=== PATIENT | male | born 1960 | race Caucasian/White ===

== ENCOUNTER → 2019-08-06 | Outpatient (CLI) | payer OTHER ==
--- NOTE | 2019-08-06 10:57 | XR ---
EXAMINATION TYPE: XR chest 2V DATE OF EXAM: 08/06/2019 COMPARISON: 10/07/2015 HISTORY: Shortness of breath and COPD. TECHNIQUE: Frontal and lateral views of the chest are obtained. FINDINGS: The masslike opacity at the right lung base seen on the prior has resolved in the interim. There is underlying bullous emphysematous change of the lung apices and COPD. Nodular left apical sc arring or 1.0 cm pulmonary nodule is demonstrated. Cardiomediastinal silhouette is stable. Pleural pa renchymal scarring in the right lung apex is seen. No new focal consolidation, pleural effusion or pn eumothorax. Multiple prominent probable vessels en face versus tiny pulmonary nodules in the left mid lung appears stable from 2016 and could be on the basis of granulomatous disease. IMPRESSION: 1. No acute cardiopulmonary process. Underlying COPD. 2. Left apical 1 cm nodular density could represent scarring or pulmonary nodule. Further evaluation with chest CT is recommended.
[2019-08-06 11:31] LABS: HCT 41.2 % (39.0-53.0); HGB 13.2 gm/dL (13.0-17.5); MCH 30.4 pg (25.0-35.0); MCHC 32.1 g/dL (31.0-37.0); MCV 94.8 fL (80.0-100.0); Mean Platelet Volume 6.9; Platelet Count 339 k/uL (150-450); RBC 4.35 m/uL (4.30-5.90); RDW 13.2 % (11.5-15.5); WBC 6.6 k/uL (3.8-10.6)
[2019-08-06 19:31] LABS: Hemoglobin A1C 5.8 % (4.0-6.0)
== END | disposition home or self-care (01) ==
LOC: LABWHC1 10:19
PROVIDERS: ATTEND Internal Medicine
DX: J44.9 Chronic obstructive pulmonary disease, unspecified (principal); M19.90 Unspecified osteoarthritis, unspecified site; R73.9 Hyperglycemia, unspecified; R91.1 Solitary pulmonary nodule
CPT/HCPCS: 36415; 71046; 83036; 84443; 85027

== ENCOUNTER → 2019-12-18 | Outpatient (CLI) | payer OTHER ==
--- NOTE | 2019-12-18 10:35 | CT ---
EXAMINATION TYPE: CT chest w con DATE OF EXAM: 12/18/2019 COMPARISON: 08/15/2013 HISTORY: Pulmonary nodule. CT DLP: 238.3 mGycm Automated exposure control for dose reduction was used. CONTRAST: CT scan of the chest is performed with IV Contrast, patient injected with 100 mL of Isovue 300. FINDINGS: LUNGS: Severe upper lobe emphysematous change noted. Apical Parenchymal scarring identified. 4 mm pul monary nodule right lower lobe at its periphery image 49. Linear atelectasis or parenchymal scarring right lung base. Additional 4 mm pulmonary nodule left lower lobe image 46. Calcified granuloma left lower lobe image 37. Additional granuloma within the lingula. MEDIASTINUM: There are no greater than 1 cm hilar or mediastinal lymph nodes. No pericardial effusi on is seen. Thoracic aorta is of normal caliber. The heart is not enlarged. UPPER ABDOMEN: No significant abnormality appreciated. OTHER: No additional significant abnormality is seen. IMPRESSION: 1. Severe upper lobe emphysematous changes with parenchymal apical scarring. 2. Scattered calcified and noncalcified pulmonary nodules
== END | disposition home or self-care (01) ==
LOC: RADCTMAIN 09:49
PROVIDERS: ATTEND Internal Medicine
DX: J43.8 Other emphysema (principal); J98.4 Other disorders of lung; R91.8 Other nonspecific abnormal finding of lung field
CPT/HCPCS: 71260; Q9967

== ENCOUNTER → 2020-02-11 | Outpatient (CLI) | payer OTHER | END | disposition home or self-care (01) | LOC: CPPFTMAIN 13:10 | PROVIDERS: ATTEND Internal Medicine Critical Care Medicine | DX: J44.9 Chronic obstructive pulmonary disease, unspecified (principal); R94.2 Abnormal results of pulmonary function studies | CPT/HCPCS: 94060; 94726; 94729 ==

== ENCOUNTER 2020-10-09 19:29 | Emergency (ER) | payer OTHER ==
[2020-10-09 19:58] VITALS: BP 120/75; PULSE 93; RESP 18; TEMP 98.1
[2020-10-09] MEDS ORDERED: diphenhydrAMINE 50 MG/ML 1 ML VIAL IM STA (20:42)
--- NOTE | 2020-10-09 20:53 | ED ---
General Adult HPI - General Chief complaint: Skin/Abscess/Foreign Body Stated complaint: rash Time Seen by Provider: 10/09/20 20:05 Source: patient, RN notes reviewed Mode of arrival: ambulatory Limitations: no limitations - History of Present Illness Initial comments: Patient is a pleasant 60-year-old male presenting to the emergency department with concern for rash to his bilateral arms. Onset of symptoms was around a week ago. There has been some improvement. Patient went to a different facility and was given a steroid cream. Patient states it is mostly itchy however there is some mild discomfort. 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 No fevers. - Related Data Home Medications Medication Instructions Recorded Confirmed Budesonide/Formoterol Fumarate 1 puff INHALATION RT-BID 10/01/15 10/01/15 [Symbicort 80-4.5 Mcg Inhaler] Previous Rx's Medication Instructions Recorded LORazepam [Ativan] 0.5 mg PO Q8H PRN #20 tab 10/13/15 Folic Acid 1 mg PO DAILY@1200 #30 tab 10/18/15 Multivitamins, Thera [Multivitamin 1 each PO DAILY@1200 #30 tab 10/18/15 (formulary)] Nicotine 21Mg/24Hr Patch [Habitrol] 1 patch TRANSDERM DAILY #30 patch 10/18/15 Nuzrx-Lnv-Ethh 278-164-250 mg 1 each PO BID #20 packet 10/18/15 [Neutra-Phos Packet] Thiamine [Vitamin B-1] 100 mg PO DAILY@1200 #30 tab 10/18/15 Sulfamethox-Tmp 800-160Mg [Bactrim 2 each PO Q12HR #40 tab 10/09/20 DS 800-160 mg] hydrOXYzine HCL [Atarax] 25 mg PO TID PRN #20 tab 10/09/20 Allergies Allergy/AdvReac Type Severity Reaction Status Date / Time Penicillins Allergy Rash/Hives Verified 10/09/20 19:55 chocolate Allergy Wheezing Uncoded 10/09/20 19:55 Review of Systems ROS Statement: Those systems with pertinent positive or pertinent negative responses have been documented in the HPI. ROS Other: All systems not noted in ROS Statement are negative. Constitutional: Denies: fever Eyes: Denies: eye pain ENT: Denies: ear pain Respiratory: Denies: cough Cardiovascular: Denies: chest pain Endocrine: Denies: fatigue Gastrointestinal: Denies: abdominal pain Genitourinary: Denies: dysuria Musculoskeletal: Denies: back pain Skin: Reports: as per HPI, rash Neurological: Denies: weakness Past Medical History Past Medical History: No Reported History Additional Past Medical History / Comment(s): glacoma History of Any Multi-Drug Resistant Organisms: None Reported Past Surgical History: No Surgical Hx Reported, Hernia Repair Additional Past Surgical History / Comment(s): lung Past Psychological History: Bipolar, Depression Smoking Status: Former smoker Past Alcohol Use History: Occasional Past Drug Use History: Cocaine, Heroin, Marijuana - Past Family History Father History Unknown: Yes General Exam Limitations: no limitations General appearance: alert, in no apparent distress Head exam: Present: normocephalic Eye exam: Present: normal appearance Respiratory exam: Present: normal lung sounds bilaterally Cardiovascular Exam: Present: regular rate, normal rhythm, normal heart sounds. Absent: systolic murmur, diastolic murmur GI/Abdominal exam: Present: soft. Absent: tenderness Extremities exam: Present: normal inspection Neurological exam: Present: alert Psychiatric exam: Present: normal affect, normal mood Skin exam: Present: other (Bilateral lower arms with several lesions of different stages, approximately 10:15 in total. There are some mild erythema.) Course Vital Signs 10/09/20 19:55 Temperature 98.1 F Pulse Rate 93 Respiratory 18 Rate Blood Pressure 120/75 O2 Sat by Pulse 99 Oximetry Medical Decision Making - Medical Decision Making Patient has lesions that are mostly appearing to be healed. There is concern for staphylococcal or strep infection and patient will be covered with antibiotics. Disposition Clinical Impression: Cellulitis Disposition: HOME SELF-CARE Condition: Stable Instructions (If sedation given, give patient instructions): Cellulitis (ED) Additional Instructions: Prescription has been sent to your pharmacy. Please follow-up with primary care physician in the next 2 days for recheck. Return for increased rash, fever, worsening or change in symptoms or any other concerns. Prescriptions: hydrOXYzine HCL [Atarax] 25 mg PO TID PRN #20 tab PRN Reason: Itching Sulfamethox-Tmp 800-160Mg [Bactrim DS 800-160 mg] 2 each PO Q12HR #40 tab Is patient prescribed a controlled substance at d/c from ED?: No Referrals: William Siu [STAFF PHYSICIAN] - 1-2 days Time of Disposition: 20:56
== END 2020-10-09 21:05 | disposition home or self-care (01) ==
LOC: EC 19:29
DX: L03.114 Cellulitis of left upper limb (principal); L03.113 Cellulitis of right upper limb; Z87.891 Personal history of nicotine dependence; Z79.51 Long term (current) use of inhaled steroids; Z88.0 Allergy status to penicillin
CPT/HCPCS: 99282; 96372; J1200

== ENCOUNTER 2020-11-05 08:26 | Emergency (ER) | payer OTHER ==
[2020-11-05 08:30] VITALS: BP 115/77; PULSE 59; RESP 18; TEMP 97.7
--- NOTE | 2020-11-05 08:41 | ED ---
General Adult HPI - General Chief complaint: Skin/Abscess/Foreign Body Stated complaint: rash on face Time Seen by Provider: 11/05/20 08:31 Source: patient Mode of arrival: wheelchair Limitations: no limitations - History of Present Illness Initial comments: 60-year-old male presents to the emergency room for a chief complaint of rash. Patient reports that he has had a rash for about 3 weeks now. He reports it is on his legs and face. States that it is itchy. States it is scabbing. Patient reports he has been seen here a couple weeks ago and treated for cellulitis. This was approximately one month ago. He has also been seen at [facility] and treated with a cream that he believes is a steroid. He has not followed up with primary care or dermatology in the past month. He does not have any swelling of the lips tongue or throat. No shortness of breath.Patient has no other complaints at this time including shortness of breath, chest pain, abdominal pain, nausea or vomiting, headache, or visual changes. - Related Data Home Medications Medication Instructions Recorded Confirmed Budesonide/Formoterol Fumarate 1 puff INHALATION RT-BID 10/01/15 10/01/15 [Symbicort 80-4.5 Mcg Inhaler] Previous Rx's Medication Instructions Recorded LORazepam [Ativan] 0.5 mg PO Q8H PRN #20 tab 10/13/15 Folic Acid 1 mg PO DAILY@1200 #30 tab 10/18/15 Multivitamins, Thera [Multivitamin 1 each PO DAILY@1200 #30 tab 10/18/15 (formulary)] Nicotine 21Mg/24Hr Patch [Habitrol] 1 patch TRANSDERM DAILY #30 patch 10/18/15 Glbjp-Qkx-Qsjh 278-164-250 mg 1 each PO BID #20 packet 10/18/15 [Neutra-Phos Packet] Thiamine [Vitamin B-1] 100 mg PO DAILY@1200 #30 tab 10/18/15 Sulfamethox-Tmp 800-160Mg [Bactrim 2 each PO Q12HR #40 tab 10/09/20 DS 800-160 mg] hydrOXYzine HCL [Atarax] 25 mg PO TID PRN #20 tab 10/09/20 Permethrin 5% Cream [Elimite] 1 applic TOPICAL ONCE #1 tube 06/20/21 Allergies Allergy/AdvReac Type Severity Reaction Status Date / Time Penicillins Allergy Rash/Hives Verified 11/05/20 08:30 chocolate Allergy Wheezing Uncoded 11/05/20 08:30 Review of Systems ROS Statement: Those systems with pertinent positive or pertinent negative responses have been documented in the HPI. ROS Other: All systems not noted in ROS Statement are negative. Past Medical History Past Medical History: No Reported History Additional Past Medical History / Comment(s): glacoma History of Any Multi-Drug Resistant Organisms: None Reported Past Surgical History: Hernia Repair Additional Past Surgical History / Comment(s): lung Past Psychological History: Bipolar, Depression Smoking Status: Former smoker Past Alcohol Use History: Occasional Past Drug Use History: Cocaine, Heroin, Marijuana - Past Family History Father History Unknown: Yes General Exam Limitations: no limitations General appearance: alert, in no apparent distress Head exam: Present: atraumatic, normocephalic, normal inspection Eye exam: Present: normal appearance, PERRL, EOMI. Absent: scleral icterus, conjunctival injection, periorbital swelling ENT exam: Present: normal exam, mucous membranes moist Neck exam: Present: normal inspection, full ROM. Absent: tenderness, meningismus, lymphadenopathy Respiratory exam: Present: normal lung sounds bilaterally. Absent: respiratory distress, wheezes, rales, rhonchi, stridor Cardiovascular Exam: Present: regular rate, normal rhythm, normal heart sounds. Absent: systolic murmur, diastolic murmur, rubs, gallop, clicks GI/Abdominal exam: Present: soft, normal bowel sounds. Absent: distended, tenderness, guarding, rebound, rigid Skin exam: Present: rash (patient has small erythematous scaling lesions on the lower legs. tracking in lines. no surrounding erythema or abscess.) Course Vital Signs 11/05/20 08:28 Temperature 97.7 F Pulse Rate 59 L Respiratory 18 Rate Blood Pressure 115/77 O2 Sat by Pulse 99 Oximetry Medical Decision Making - Medical Decision Making Patient has been treated with an antibiotic as well as creams. We will try permethrin given there are tracking lines consistent with scabies. Recommended that he follow up with dermatology or primary care as he has had this rash for over a month now. I did discuss not putting this on his face as well as leaving it on for 8-10 hours and then rinsing off completely. He will return for any worsening symptoms. Disposition Clinical Impression: Rash and nonspecific skin eruption Disposition: HOME SELF-CARE Condition: Good Instructions (If sedation given, give patient instructions): Acute Rash (ED) Additional Instructions: Please use medication as directed. Follow-up with the television engineer or primary care. Return to the emergency room for any worsening symptoms. Prescriptions: Permethrin 5% Cream [Elimite] 1 applic TOPICAL ONCE #1 tube Is patient prescribed a controlled substance at d/c from ED?: No Referrals: Bud Santamaria MD [REFERRING] - 1-2 days Castro Hall MD [STAFF PHYSICIAN] - 1-2 days Time of Disposition: 08:38
== END 2020-11-05 09:01 | disposition home or self-care (01) ==
LOC: EC 08:26
DX: R21 Rash and other nonspecific skin eruption (principal); L98.9 Disorder of the skin and subcutaneous tissue, unspecified; Z79.51 Long term (current) use of inhaled steroids; Z87.891 Personal history of nicotine dependence; Z88.0 Allergy status to penicillin; F31.9 Bipolar disorder, unspecified; F12.90 Cannabis use, unspecified, uncomplicated; F14.90 Cocaine use, unspecified, uncomplicated
CPT/HCPCS: 99282

== ENCOUNTER 2020-11-19 07:08 | Emergency (ER) | payer OTHER ==
[2020-11-19 07:18] VITALS: BP 130/86; PULSE 91; RESP 18; TEMP 98.7
--- NOTE | 2020-11-19 07:31 | ED ---
General Adult HPI - General Chief complaint: Skin/Abscess/Foreign Body Stated complaint: Rash Time Seen by Provider: 11/19/20 07:15 Source: patient, RN notes reviewed, old records reviewed Mode of arrival: ambulatory Limitations: no limitations - History of Present Illness Initial comments: This is a 60-year-old male who comes in stating that he has rash he's been treated multiple times doesn't know what it is. Everything that he points to accept on his lips look like old excoriated areas that he has ripped off or picked at and he admits that he has done this but is worried that the getting infected. Patient denies any fevers or chills patient does point to some areas around his lips that are little crusted that have a little bit of honey zully ting. Patient states he does pick at these as well. Patient shows me an area where he believes new rash is beginning and there is nothing there. Patient has no rash or areas of excoriation out of the reach of his hands. Patient also stated that he thinks maybe parasites and his blood thinner causing this. - Related Data Home Medications Medication Instructions Recorded Confirmed Budesonide/Formoterol Fumarate 1 puff INHALATION RT-BID 10/01/15 10/01/15 [Symbicort 80-4.5 Mcg Inhaler] Previous Rx's Medication Instructions Recorded LORazepam [Ativan] 0.5 mg PO Q8H PRN #20 tab 10/13/15 Folic Acid 1 mg PO DAILY@1200 #30 tab 10/18/15 Multivitamins, Thera [Multivitamin 1 each PO DAILY@1200 #30 tab 10/18/15 (formulary)] Nicotine 21Mg/24Hr Patch [Habitrol] 1 patch TRANSDERM DAILY #30 patch 10/18/15 Sacaj-Ykq-Jslt 278-164-250 mg 1 each PO BID #20 packet 10/18/15 [Neutra-Phos Packet] Thiamine [Vitamin B-1] 100 mg PO DAILY@1200 #30 tab 10/18/15 Sulfamethox-Tmp 800-160Mg [Bactrim 2 each PO Q12HR #40 tab 10/09/20 DS 800-160 mg] hydrOXYzine HCL [Atarax] 25 mg PO TID PRN #20 tab 10/09/20 Permethrin 5% Cream [Elimite] 1 applic TOPICAL ONCE #1 tube 11/05/20 Mupirocin 2% Oint [Bactroban 2% 1 applic TOPICAL TID #22 gm 11/19/20 Oint] Allergies Allergy/AdvReac Type Severity Reaction Status Date / Time Penicillins Allergy Rash/Hives Verified 11/19/20 07:18 chocolate Allergy Wheezing Uncoded 11/19/20 07:18 Review of Systems ROS Statement: Those systems with pertinent positive or pertinent negative responses have been documented in the HPI. ROS Other: All systems not noted in ROS Statement are negative. Past Medical History Past Medical History: No Reported History Additional Past Medical History / Comment(s): glaucoma History of Any Multi-Drug Resistant Organisms: None Reported Past Surgical History: Hernia Repair Additional Past Surgical History / Comment(s): lung Past Psychological History: Bipolar, Depression Smoking Status: Former smoker Past Alcohol Use History: Occasional Past Drug Use History: Cocaine, Heroin, Marijuana - Past Family History Father History Unknown: Yes General Exam - General Exam Comments Initial Comments: GENERAL Patient is well-developed and well-nourished. Patient is in mild distress. EYES Patient's pupils are equal and round. Extraocular motion is intact SKIN Patient has some excoriated areas on the chin and upper lip consistent with impetigo. Otherwise all excoriated areas appear to be healing and no signs of infection are present NEURO The patient is alert and oriented 3 PYSCH Patient has normal interpersonal interactions. MUSCULOSKELETAL All 4 times and full range of motion Limitations: no limitations Course Vital Signs 11/19/20 07:16 Temperature 98.7 F Pulse Rate 91 Respiratory 18 Rate Blood Pressure 130/86 O2 Sat by Pulse 100 Oximetry Medical Decision Making - Medical Decision Making Patient was upset that I didn't think he had a parasite causing this and he walked out. Disposition Clinical Impression: Impetigo Disposition: Left Against Medical Advice Condition: Good Prescriptions: Mupirocin 2% Oint [Bactroban 2% Oint] 1 applic TOPICAL TID #22 gm Is patient prescribed a controlled substance at d/c from ED?: No Referrals: None,Stated [Primary Care Provider] - 1-2 days Time of Disposition: 07:30
== END 2020-11-19 07:38 | disposition left against medical advice (07) ==
LOC: EC 07:08
DX: L01.00 Impetigo, unspecified (principal)

== ENCOUNTER 2020-11-21 07:21 | Emergency (ER) | payer OTHER ==
[2020-11-21 07:27] VITALS: BP 132/85; PULSE 98; RESP 18; TEMP 98.2
--- NOTE | 2020-11-21 07:37 | ED ---
General Adult HPI - General Chief complaint: Skin/Abscess/Foreign Body Stated complaint: Bug Bite on Rt Leg Time Seen by Provider: 11/21/20 07:32 Source: patient Mode of arrival: ambulatory Limitations: no limitations - History of Present Illness Initial comments: Dictation was produced using [employer] dictation software. please excuse any grammatical, word or spelling errors. Chief Complaint: 60-year-old male presents with concerns of old implantation in the right leg History of Present Illness: 60-year-old male he currently lives in a longterm. Patient has history of methamphetamine abuse. Patient states that over the last couple days he feels as though a large bug had implanted itself in his right lateral calf area. States that he was able to remove half of the bug with the other half is living in his leg. Went to [facility] yesterday nothing was done he was discharged. Patient has no other complaints at this time. The ROS documented in this emergency department record has been reviewed and confirmed by me. Those systems with pertinent positive or negative responses have been documented in the HPI. All other systems are other negative and/or noncontributory. PHYSICAL EXAM: General Impression: Alert and oriented x3, not in acute distress HEENT: Normocephalic atraumatic, extra-ocular movements intact, pupils equal and reactive to light bilaterally, mucous membranes moist. Cardiovascular: Heart regular rate and rhythm Chest: Able to complete full sentences, no retractions, no tachypnea Abdomen: abdomen soft, non-tender, non-distended, no organomegaly Musculoskeletal: Pulses present and equal in all extremities, no peripheral edema Motor: no focal deficits noted Neurological: CN II-XII grossly intact, no focal motor or sensory deficits noted Skin: Intact with no visualized rashes Right lower leg: There is a small scab measuring 2 x 2 mm over the right lateral calf. Nonindurated, nonerythematous Psych: Normal affect and mood ED course: 60-year-old male presents with concerns of bug implantation in his right lower leg. He has history of methamphetamine abuse. Vital signs upon arrival are within acceptable limits. Clinical presentation consistent with scab of the right lateral lower calf. No concerns for infectious etiology. Assurance provided. Patient discharged. - Related Data Home Medications Medication Instructions Recorded Confirmed Budesonide/Formoterol Fumarate 1 puff INHALATION RT-BID 10/01/15 10/01/15 [Symbicort 80-4.5 Mcg Inhaler] Previous Rx's Medication Instructions Recorded LORazepam [Ativan] 0.5 mg PO Q8H PRN #20 tab 10/13/15 Folic Acid 1 mg PO DAILY@1200 #30 tab 10/18/15 Multivitamins, Thera [Multivitamin 1 each PO DAILY@1200 #30 tab 10/18/15 (formulary)] Nicotine 21Mg/24Hr Patch [Habitrol] 1 patch TRANSDERM DAILY #30 patch 10/18/15 Qgkaf-Pbs-Zlfd 278-164-250 mg 1 each PO BID #20 packet 10/18/15 [Neutra-Phos Packet] Thiamine [Vitamin B-1] 100 mg PO DAILY@1200 #30 tab 10/18/15 Sulfamethox-Tmp 800-160Mg [Bactrim 2 each PO Q12HR #40 tab 10/09/20 DS 800-160 mg] hydrOXYzine HCL [Atarax] 25 mg PO TID PRN #20 tab 10/09/20 Permethrin 5% Cream [Elimite] 1 applic TOPICAL ONCE #1 tube 11/05/20 Mupirocin 2% Oint [Bactroban 2% 1 applic TOPICAL TID #22 gm 11/19/20 Oint] Allergies Allergy/AdvReac Type Severity Reaction Status Date / Time Penicillins Allergy Rash/Hives Verified 11/21/20 07:27 chocolate Allergy Wheezing Uncoded 11/21/20 07:27 Review of Systems ROS Statement: Those systems with pertinent positive or pertinent negative responses have been documented in the HPI. ROS Other: All systems not noted in ROS Statement are negative. Past Medical History Past Medical History: No Reported History Additional Past Medical History / Comment(s): glaucoma History of Any Multi-Drug Resistant Organisms: None Reported Past Surgical History: Hernia Repair Additional Past Surgical History / Comment(s): right partial lung removal Past Psychological History: Bipolar, Depression Smoking Status: Former smoker Past Alcohol Use History: None Reported Past Drug Use History: Cocaine, Heroin, Marijuana - Past Family History Father History Unknown: Yes General Exam Limitations: no limitations Course Vital Signs 11/21/20 07:21 Temperature 98.2 F Pulse Rate 98 Respiratory 18 Rate Blood Pressure 132/85 O2 Sat by Pulse 97 Oximetry Disposition Clinical Impression: Scab Disposition: HOME SELF-CARE Condition: Good Instructions (If sedation given, give patient instructions): Abrasion (ED) Is patient prescribed a controlled substance at d/c from ED?: No Referrals: None,Stated [Primary Care Provider] - 1-2 days
== END 2020-11-21 07:42 | disposition home or self-care (01) ==
LOC: EC 07:21
DX: R23.4 Changes in skin texture (principal); F31.9 Bipolar disorder, unspecified; Z87.891 Personal history of nicotine dependence; Z88.0 Allergy status to penicillin
CPT/HCPCS: 99282

== ENCOUNTER 2020-11-24 11:46 | Emergency (ER) | payer OTHER ==
[2020-11-24 12:00] VITALS: BP 115/76; PULSE 89; RESP 20; TEMP 97.9
--- NOTE | 2020-11-24 12:30 | ED ---
Skin/Abscess/FB HPI - General Chief complaint: Skin/Abscess/Foreign Body Stated complaint: skin issues on face/revisit Time Seen by Provider: 11/24/20 12:04 Source: patient Mode of arrival: ambulatory Limitations: no limitations - History of Present Illness Initial comments: Patient is a 60-year-old male presenting to the emergency Department with compl aints of rashes. This is patient's third visit in the last week for same complaint. He states he has been picking at his skin and causing irritation. He is concerned that he feels like there is something crawling underneath his skin. He denies any fevers or chills. He is upset that we are not doing anything about this. He denies any suicidal or homicidal thoughts, he is not psychotic. He has no further complaints. - Related Data Home Medications Medication Instructions Recorded Confirmed Budesonide/Formoterol Fumarate 1 puff INHALATION RT-BID 10/01/15 10/01/15 [Symbicort 80-4.5 Mcg Inhaler] Previous Rx's Medication Instructions Recorded LORazepam [Ativan] 0.5 mg PO Q8H PRN #20 tab 10/13/15 Folic Acid 1 mg PO DAILY@1200 #30 tab 10/18/15 Multivitamins, Thera [Multivitamin 1 each PO DAILY@1200 #30 tab 10/18/15 (formulary)] Nicotine 21Mg/24Hr Patch [Habitrol] 1 patch TRANSDERM DAILY #30 patch 10/18/15 Wjyzs-Dcu-Slzy 278-164-250 mg 1 each PO BID #20 packet 10/18/15 [Neutra-Phos Packet] Thiamine [Vitamin B-1] 100 mg PO DAILY@1200 #30 tab 10/18/15 Sulfamethox-Tmp 800-160Mg [Bactrim 2 each PO Q12HR #40 tab 10/09/20 DS 800-160 mg] hydrOXYzine HCL [Atarax] 25 mg PO TID PRN #20 tab 10/09/20 Permethrin 5% Cream [Elimite] 1 applic TOPICAL ONCE #1 tube 11/05/20 Mupirocin 2% Oint [Bactroban 2% 1 applic TOPICAL TID #22 gm 11/19/20 Oint] Allergies Allergy/AdvReac Type Severity Reaction Status Date / Time Penicillins Allergy Rash/Hives Verified 11/24/20 12:00 chocolate Allergy Wheezing Uncoded 11/24/20 12:00 Review of Systems ROS Statement: Those systems with pertinent positive or pertinent negative responses have been documented in the HPI. ROS Other: All systems not noted in ROS Statement are negative. Past Medical History Past Medical History: No Reported History Additional Past Medical History / Comment(s): glaucoma History of Any Multi-Drug Resistant Organisms: None Reported Past Surgical History: Hernia Repair Additional Past Surgical History / Comment(s): right partial lung removal. pneumothrax Past Psychological History: Bipolar, Depression Smoking Status: Former smoker Past Alcohol Use History: None Reported Past Drug Use History: Cocaine, Heroin, Marijuana - Past Family History Father History Unknown: Yes General Exam - General Exam Comments Initial Comments: GENERAL: Patient is nontoxic and in no acute distress, appears under the influence. HEAD: Atraumatic, normocephalic. EYES: Pupils equal round and reactive to light, extraocular movements intact, sclera anicteric, conjunctiva are normal. Eyelids were unremarkable. ENT: Nares patent, oropharynx clear without exudates. Moist mucous membranes. NECK: Normal range of motion, supple without lymphadenopathy or JVD. LUNGS: Unlabored respirations. Breath sounds clear to auscultation bilaterally and equal. No wheezes rales or rhonchi. HEART: Regular rate and rhythm without murmurs, rubs or gallops. ABDOMEN: Soft, nontender, normoactive bowel sounds. No guarding, no rebound. No masses appreciated. : Deferred MUSCULOSKELETAL: Normal extremities with adequate strength and normal range of motion, no pitting or edema. No clubbing or cyanosis. NEUROLOGICAL: Patient is alert and oriented x 3. Normal speech, normal gait. PSYCH: Normal mood, normal affect. SKIN: Warm, Dry, normal turgor. Patient has numerous small skin irritations throughout his forearms and legs that appear to be from him picking at them. There are no signs of an abscess, no infection present. Limitations: no limitations Course Vital Signs 11/24/20 11:52 Temperature 97.9 F Pulse Rate 89 Respiratory 20 Rate Blood Pressure 115/76 O2 Sat by Pulse 100 Oximetry Medical Decision Making - Medical Decision Making Patient is a 60-year-old male here with complaints of rash. This is patient's third visit in 1 week for same complaint. He appears to be under the influence. Patient does have numerous small skin irritations consistent with patient picking at them. There is no signs of infection, no abscesses, no bugs on the patient. I discussed with him that he needs a septic and his skin. He is stable for discharge. Keep areas clean and dry. Disposition Clinical Impression: Scab Disposition: HOME SELF-CARE Condition: Stable Instructions (If sedation given, give patient instructions): Acute Wound Care (ED) Additional Instructions: Please return to the Emergency Department if symptoms worsen or any other concerns. The areas clean and dry. Do not pick at wounds. Is patient prescribed a controlled substance at d/c from ED?: No Referrals: None,Stated [Primary Care Provider] - 1-2 days Time of Disposition: 12:30
== END 2020-11-24 12:39 | disposition home or self-care (01) ==
LOC: EC 11:46
DX: R23.4 Changes in skin texture (principal); F31.9 Bipolar disorder, unspecified; F12.90 Cannabis use, unspecified, uncomplicated; F14.90 Cocaine use, unspecified, uncomplicated; Z87.891 Personal history of nicotine dependence; Z88.0 Allergy status to penicillin
CPT/HCPCS: 99282

== ENCOUNTER 2020-11-25 19:06 | Emergency (ER) | payer OTHER ==
[2020-11-25 19:11] VITALS: BP 136/96; PULSE 100; RESP 16; TEMP 98
--- NOTE | 2020-11-25 19:45 | ED ---
Animal Bite HPI - General Chief Complaint: Animal Bite Stated Complaint: revisit - insect bite lt arm Time Seen by Provider: 11/25/20 19:18 Source: patient, RN notes reviewed Mode of arrival: ambulatory Limitations: no limitations - History of Present Illness Initial Comments: Patient is a 60-year-old male that presents to the emergency department compl aining of left wrist but bite. He notes that he was bit by something unsure what it was. He notes that he came in to get evaluated. He notes it is itchy. He notes he scratched the top off on it. He notes that it was bleeding minimally. She denied any other symptoms or complaints at this time. She denied any chest pain shortness of breath headache nausea vomiting diarrhea constipation fever fatigue chills. - Related Data Home Medications Medication Instructions Recorded Confirmed Budesonide/Formoterol Fumarate 1 puff INHALATION RT-BID 10/01/15 10/01/15 [Symbicort 80-4.5 Mcg Inhaler] Previous Rx's Medication Instructions Recorded LORazepam [Ativan] 0.5 mg PO Q8H PRN #20 tab 10/13/15 Folic Acid 1 mg PO DAILY@1200 #30 tab 10/18/15 Multivitamins, Thera [Multivitamin 1 each PO DAILY@1200 #30 tab 10/18/15 (formulary)] Nicotine 21Mg/24Hr Patch [Habitrol] 1 patch TRANSDERM DAILY #30 patch 10/18/15 Sjpfd-Xuu-Yetb 278-164-250 mg 1 each PO BID #20 packet 10/18/15 [Neutra-Phos Packet] Thiamine [Vitamin B-1] 100 mg PO DAILY@1200 #30 tab 10/18/15 Sulfamethox-Tmp 800-160Mg [Bactrim 2 each PO Q12HR #40 tab 10/09/20 DS 800-160 mg] hydrOXYzine HCL [Atarax] 25 mg PO TID PRN #20 tab 10/09/20 Permethrin 5% Cream [Elimite] 1 applic TOPICAL ONCE #1 tube 11/05/20 Mupirocin 2% Oint [Bactroban 2% 1 applic TOPICAL TID #22 gm 11/19/20 Oint] Hydrocortisone Cream 1 applic TOPICAL TID 10 Days #60 gm 11/25/20 [Hydrocortisone 2.5% Cream] Allergies Allergy/AdvReac Type Severity Reaction Status Date / Time Penicillins Allergy Rash/Hives Verified 11/25/20 19:11 chocolate Allergy Wheezing Uncoded 11/25/20 19:11 Review of Systems ROS Statement: Those systems with pertinent positive or pertinent negative responses have been documented in the HPI. ROS Other: All systems not noted in ROS Statement are negative. Past Medical History Past Medical History: No Reported History Additional Past Medical History / Comment(s): glaucoma History of Any Multi-Drug Resistant Organisms: None Reported Past Surgical History: Hernia Repair Additional Past Surgical History / Comment(s): right partial lung removal. pneumothrax Past Psychological History: Bipolar, Depression Smoking Status: Former smoker Past Alcohol Use History: None Reported Past Drug Use History: Cocaine, Heroin, Marijuana - Past Family History Father History Unknown: Yes General Exam Limitations: no limitations General appearance: alert, in no apparent distress Head exam: Present: atraumatic, normocephalic, normal inspection Eye exam: Present: normal appearance, PERRL, EOMI. Absent: scleral icterus, conjunctival injection, periorbital swelling Neck exam: Present: normal inspection Respiratory exam: Present: normal lung sounds bilaterally. Absent: respiratory distress, wheezes, rales, rhonchi, stridor Cardiovascular Exam: Present: regular rate, normal rhythm, normal heart sounds. Absent: systolic murmur, diastolic murmur, rubs, gallop, clicks Extremities exam: Present: normal inspection, full ROM, normal capillary refill. Absent: tenderness, pedal edema, joint swelling, calf tenderness Neurological exam: Present: alert, oriented X3 Psychiatric exam: Present: normal affect, normal mood Skin exam: Present: warm, dry, intact, normal color, abrasion (To the medial aspect of the left wrist were patient scratched off the top of a bug bite.). Absent: rash Course Vital Signs 11/25/20 19:08 Temperature 98.0 F Pulse Rate 100 Respiratory 16 Rate Blood Pressure 136/96 O2 Sat by Pulse 100 Oximetry Medical Decision Making - Medical Decision Making 60-year-old male complaining of left wrist bug bite. Given clinical signs and symptoms no imaging or labs at this time. Patient be discharged home with anti-itch cream. Case discussed with Dr. Merritt Disposition Clinical Impression: Insect bite Disposition: HOME SELF-CARE Instructions (If sedation given, give patient instructions): Insect Bite or Sting (ED) Additional Instructions: Please return to the Emergency Department if symptoms worsen or any other concerns. Follow-up primary care as needed. Use antacids can as prescribed. Prescriptions: Hydrocortisone Cream [Hydrocortisone 2.5% Cream] 1 applic TOPICAL TID 10 Days #60 gm Is patient prescribed a controlled substance at d/c from ED?: No Referrals: William Siu [Primary Care Provider] - 1-2 days Time of Disposition: 19:45
== END 2020-11-25 20:07 | disposition home or self-care (01) ==
LOC: EC 19:06
DX: S60.862A Insect bite (nonvenomous) of left wrist, initial encounter (principal); F31.9 Bipolar disorder, unspecified; Z87.891 Personal history of nicotine dependence; Z79.51 Long term (current) use of inhaled steroids; Z88.0 Allergy status to penicillin; W57.XXXA Bitten or stung by nonvenomous insect and other nonvenomous arthropods, initial encounter
CPT/HCPCS: 99282

== ENCOUNTER 2020-11-26 01:01 | Emergency (ER) | payer OTHER ==
[2020-11-26 01:10] VITALS: BP 138/92; PULSE 93; RESP 18; TEMP 97.7
--- NOTE | 2020-11-26 02:10 | XR ---
EXAMINATION TYPE: XR hand complete LT DATE OF EXAM: 11/26/2020 COMPARISON: NONE HISTORY: Thumb pain. TECHNIQUE: 3 views FINDINGS: I see no fracture nor dislocation. There is some spurring at the first carpometacarpal join t. The thumb appears intact. There is some thinning of the soft tissues at the tip of the middle fing er that could be an old injury. IMPRESSION: No fracture seen. 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
--- NOTE | 2020-11-26 02:21 | ED ---
General Adult HPI - General Chief complaint: Extremity Injury, Upper Stated complaint: Revisit bug bite Time Seen by Provider: 11/26/20 01:20 Source: patient, RN notes reviewed Mode of arrival: ambulatory Limitations: no limitations - History of Present Illness Initial comments: Patient is a 60-year-old male that comes in complaining of left hand pain. He notes that his left finger hurts but denies any trauma or injury. He was well- appearing well-hydrated 60-year-old male in no apparent distress or pain. Patient was recently seen in the emergency room for a bug bite. Patient denied any chest pain shortness breath headache nausea vomiting diarrhea constipation fever fatigue chills. Patient does report a history of substance abuse. - Related Data Home Medications Medication Instructions Recorded Confirmed Budesonide/Formoterol Fumarate 1 puff INHALATION RT-BID 10/01/15 10/01/15 [Symbicort 80-4.5 Mcg Inhaler] Previous Rx's Medication Instructions Recorded LORazepam [Ativan] 0.5 mg PO Q8H PRN #20 tab 10/13/15 Folic Acid 1 mg PO DAILY@1200 #30 tab 10/18/15 Multivitamins, Thera [Multivitamin 1 each PO DAILY@1200 #30 tab 10/18/15 (formulary)] Nicotine 21Mg/24Hr Patch [Habitrol] 1 patch TRANSDERM DAILY #30 patch 10/18/15 Inpom-Zom-Xdfu 278-164-250 mg 1 each PO BID #20 packet 10/18/15 [Neutra-Phos Packet] Thiamine [Vitamin B-1] 100 mg PO DAILY@1200 #30 tab 10/18/15 Sulfamethox-Tmp 800-160Mg [Bactrim 2 each PO Q12HR #40 tab 10/09/20 DS 800-160 mg] hydrOXYzine HCL [Atarax] 25 mg PO TID PRN #20 tab 10/09/20 Permethrin 5% Cream [Elimite] 1 applic TOPICAL ONCE #1 tube 11/05/20 Mupirocin 2% Oint [Bactroban 2% 1 applic TOPICAL TID #22 gm 11/19/20 Oint] Hydrocortisone Cream 1 applic TOPICAL TID 10 Days #60 gm 11/25/20 [Hydrocortisone 2.5% Cream] Allergies Allergy/AdvReac Type Severity Reaction Status Date / Time Penicillins Allergy Rash/Hives Verified 11/26/20 01:08 chocolate Allergy Wheezing Uncoded 11/26/20 01:08 Review of Systems ROS Statement: Those systems with pertinent positive or pertinent negative responses have been documented in the HPI. ROS Other: All systems not noted in ROS Statement are negative. Past Medical History Past Medical History: No Reported History Additional Past Medical History / Comment(s): glaucoma History of Any Multi-Drug Resistant Organisms: None Reported Past Surgical History: Hernia Repair Additional Past Surgical History / Comment(s): right partial lung removal. pneumothrax Past Psychological History: Bipolar, Depression Smoking Status: Former smoker Past Alcohol Use History: None Reported Past Drug Use History: Cocaine, Heroin, Marijuana - Past Family History Father History Unknown: Yes General Exam Limitations: no limitations General appearance: alert, in no apparent distress Head exam: Present: atraumatic, normocephalic, normal inspection Eye exam: Present: normal appearance, PERRL, EOMI. Absent: scleral icterus, conjunctival injection, periorbital swelling Neck exam: Present: normal inspection Respiratory exam: Present: normal lung sounds bilaterally. Absent: respiratory distress, wheezes, rales, rhonchi, stridor Cardiovascular Exam: Present: regular rate, normal rhythm, normal heart sounds. Absent: systolic murmur, diastolic murmur, rubs, gallop, clicks GI/Abdominal exam: Present: soft, normal bowel sounds. Absent: distended, tenderness, guarding, rebound, rigid Extremities exam: Present: normal inspection, full ROM, normal capillary refill. Absent: tenderness, pedal edema, joint swelling, calf tenderness Neurological exam: Present: alert, oriented X3 Psychiatric exam: Present: normal affect, normal mood Skin exam: Present: warm, dry, intact, normal color. Absent: rash Course Vital Signs 11/26/20 01:08 Temperature 97.7 F Pulse Rate 93 Respiratory 18 Rate Blood Pressure 138/92 O2 Sat by Pulse 98 Oximetry Medical Decision Making - Medical Decision Making 60-year-old male complaining of left hand pain with no injury or trauma. X-ray of the hand ordered. Patient stated pain was tolerable Florien medication. X-ray negative for any acute osseous abnormality. Case discussed with Dr. Foss,, patient can discharge home follow-up primary care and tankerman for future bug bites and skin related issues. - Radiology Data Radiology results: report reviewed, image reviewed Left hand x-ray: No acute osseous abnormality, mild osteoarthritis aches of left thumb Disposition Clinical Impression: Left hand pain Disposition: HOME SELF-CARE Condition: Stable Instructions (If sedation given, give patient instructions): Hand Sprain (ED) Additional Instructions: Please return to the Emergency Department if symptoms worsen or any other concerns. Follow-up primary care and dermatology in the next few days. Take at home medications as prescribed. Is patient prescribed a controlled substance at d/c from ED?: No Referrals: William Siu [Primary Care Provider] - 1-2 days Time of Disposition: 02:17
== END 2020-11-26 02:24 | disposition home or self-care (01) ==
LOC: EC 01:01
DX: M79.642 Pain in left hand (principal); F31.9 Bipolar disorder, unspecified; F14.90 Cocaine use, unspecified, uncomplicated; F12.90 Cannabis use, unspecified, uncomplicated; Z87.891 Personal history of nicotine dependence; Z79.51 Long term (current) use of inhaled steroids; Z88.0 Allergy status to penicillin
CPT/HCPCS: 99283

== ENCOUNTER 2020-11-30 02:58 | Emergency (ER) | payer OTHER ==
[2020-11-30 03:02] VITALS: PULSE 103
[2020-11-30] MEDS ORDERED: MUPIROCIN 2% OINT 22 GM TUBE TOPICAL STA (03:15)
[2020-11-30] MEDS ORDERED: ACET/COD 300 MG/30 MG STARTER PACK 6 TAB BTL PO STA (03:15)
[2020-11-30] MEDS ORDERED: CEPHALEXIN 500MG STARTER PACK 4 CAP BTL PO STA (03:15)
--- NOTE | 2020-11-30 03:19 | ED ---
Skin/Abscess/FB HPI - General Chief complaint: Skin/Abscess/Foreign Body Stated complaint: poss bug bite Time Seen by Provider: 11/30/20 03:06 Source: patient Mode of arrival: ambulatory Limitations: no limitations - History of Present Illness Initial comments: 60 year-old male patient with history of polysubstance abuse presents for evaluation of "bug bites". Patient states he has multiple areas over his body where bugs have burrowed in and laid eggs. States that the areas are becoming inflamed. States that he has been seen several times for this but no one is helping him. He states the worst spots are on his face. Reports pain and swelling to the area above the left eye. Denies any visual changes. Denies any fever or chills. Does admit to picking at the areas "trying to get the bugs out". States he has not yet followed up since his previous visits. Patient denies any recent rash, cough, shortness of breath, chest pain, abdominal pain, nausea, vomiting, diarrhea, constipation, back pain, numbness, tingling, dizziness, weakness, hematuria, dysuria, urinary urgency, urinary frequency, headache, visual changes, or any other complaints. - Related Data Home Medications Medication Instructions Recorded Confirmed Budesonide/Formoterol Fumarate 1 puff INHALATION RT-BID 10/01/15 10/01/15 [Symbicort 80-4.5 Mcg Inhaler] Previous Rx's Medication Instructions Recorded LORazepam [Ativan] 0.5 mg PO Q8H PRN #20 tab 10/13/15 Folic Acid 1 mg PO DAILY@1200 #30 tab 10/18/15 Multivitamins, Thera [Multivitamin 1 each PO DAILY@1200 #30 tab 10/18/15 (formulary)] Nicotine 21Mg/24Hr Patch [Habitrol] 1 patch TRANSDERM DAILY #30 patch 10/18/15 Kqhez-Emi-Qpsj 278-164-250 mg 1 each PO BID #20 packet 10/18/15 [Neutra-Phos Packet] Thiamine [Vitamin B-1] 100 mg PO DAILY@1200 #30 tab 10/18/15 Sulfamethox-Tmp 800-160Mg [Bactrim 2 each PO Q12HR #40 tab 10/09/20 DS 800-160 mg] hydrOXYzine HCL [Atarax] 25 mg PO TID PRN #20 tab 10/09/20 Permethrin 5% Cream [Elimite] 1 applic TOPICAL ONCE #1 tube 11/05/20 Mupirocin 2% Oint [Bactroban 2% 1 applic TOPICAL TID #22 gm 11/19/20 Oint] Hydrocortisone Cream 1 applic TOPICAL TID 10 Days #60 gm 11/25/20 [Hydrocortisone 2.5% Cream] Cephalexin [Keflex] 500 mg PO Q6H #40 cap 11/30/20 Allergies Allergy/AdvReac Type Severity Reaction Status Date / Time Penicillins Allergy Rash/Hives Verified 11/30/20 03:02 chocolate Allergy Wheezing Uncoded 11/30/20 03:02 Review of Systems ROS Statement: Those systems with pertinent positive or pertinent negative responses have been documented in the HPI. ROS Other: All systems not noted in ROS Statement are negative. Past Medical History Past Medical History: No Reported History Additional Past Medical History / Comment(s): glaucoma History of Any Multi-Drug Resistant Organisms: None Reported Past Surgical History: Hernia Repair Additional Past Surgical History / Comment(s): right partial lung removal. pneumothrax Past Psychological History: Bipolar, Depression Smoking Status: Former smoker Past Alcohol Use History: None Reported Past Drug Use History: Cocaine, Heroin, Marijuana - Past Family History Father History Unknown: Yes General Exam Limitations: no limitations General appearance: alert, in no apparent distress, other (Physical well- developed, well-nourished adult male patient in no acute distress. Vital signs upon presentation are temperature 97.9F, pulse 103, respirations 22, blood pressure 132/76, pulse ox 99% on room air.) Head exam: Present: other (Left forehead erythema, excoriation, and swelling. ) Eye exam: Present: normal appearance, PERRL, EOMI. Absent: scleral icterus, conjunctival injection, periorbital swelling Respiratory exam: Present: normal lung sounds bilaterally. Absent: respiratory distress, wheezes, rales, rhonchi, stridor Cardiovascular Exam: Present: regular rate, normal rhythm, normal heart sounds. Absent: systolic murmur, diastolic murmur, rubs, gallop, clicks Neurological exam: Present: alert, oriented X3, CN II-XII intact Psychiatric exam: Present: normal affect, normal mood Skin exam: Present: warm, dry, intact, normal color. Absent: rash Course Vital Signs 11/30/20 11/30/20 02:59 03:52 Temperature 97.9 F 98 F Pulse Rate 103 H Respiratory 22 84 H Rate Blood Pressure 132/76 154/88 O2 Sat by Pulse 99 99 Oximetry Medical Decision Making - Medical Decision Making 60-year-old male patient with history of polysubstance abuse presents for evaluation of swelling and redness to his face. Also reports multiple areas where he believes bugs have burden to his skin and laid aches. Most of the areas he showed me are well-healed no signs of infection. The area above the left eye does reveal some redness and swelling. He is afebrile normal vital signs. He is somewhat hostile toward staff. He'll be given antibiotic oral and topical to apply. He is instructed to follow-up with dermatology in his primary care physician for further evaluation as soon as possible. Return parameters were discussed in detail. He verbalizes understanding and agrees with this plan. Case discussed with my attending Dr. Yan. Disposition Clinical Impression: Open facial wound Disposition: HOME SELF-CARE Condition: Good Instructions (If sedation given, give patient instructions): Acute Wound Care (ED) Additional Instructions: Take medications as directed. Contact your insurance company to see which dermatologists are covered by your insurance. Return for any new, worsening, or concerning symptoms. Prescriptions: Cephalexin [Keflex] 500 mg PO Q6H #40 cap Is patient prescribed a controlled substance at d/c from ED?: No Referrals: None,Stated [Primary Care Provider] - 1-2 days Time of Disposition: 03:18
[2020-11-30 03:53] VITALS: BP 154/88; RESP 84; TEMP 98
== END 2020-11-30 03:53 | disposition home or self-care (01) ==
LOC: EC 02:58
DX: S01.85XA Open bite of other part of head, initial encounter (principal); W57.XXXA Bitten or stung by nonvenomous insect and other nonvenomous arthropods, initial encounter; Z87.891 Personal history of nicotine dependence; F12.90 Cannabis use, unspecified, uncomplicated
CPT/HCPCS: 99283

== ENCOUNTER → 2021-04-09 | Outpatient (CLI) | payer OTHER ==
--- NOTE | 2021-04-09 09:45 | CT ---
EXAMINATION TYPE: CT chest w con DATE OF EXAM: 04/09/2021 COMPARISON: Chest CT December 18, 2019 HISTORY: Lung nodule CT DLP: 184.5 mGycm. Automated Exposure Control for Dose Reduction was Utilized. TECHNIQUE: CT scan of the thorax is performed following with IV Contrast, patient injected with 100 mL of Isovue 300. FINDINGS: LUNGS: Severe bilateral apical and upper lung parenchymal scarring with bulla and bleb formation is r edemonstrated. Scattered micronodules redemonstrated bilaterally . Stable 4 mm subpleural right middl e lobe nodule axial image 45. Stable calcified 4 mm right lower lobe nodule image 49 and calcified 4 mm left lower lobe axial image 36. No definitive new greater than 5 mm noncalcified pulmonary nodule s. There is no pleural effusion or pneumothorax seen. The tracheobronchial tree is patent. MEDIASTINUM: There are no new greater than 1 cm noncalcified hilar or mediastinal lymph nodes. No c ardiomegaly or pericardial effusion is seen. OTHER: No additional significant abnormality is seen. IMPRESSION: Overall stable findings, no new or enlarging greater than 5 mm noncalcified pulmonary nod ules. Emphysematous change and old granulomatous disease redemonstrated.
== END | disposition home or self-care (01) ==
LOC: RADCTMAIN 07:48
PROVIDERS: ATTEND Internal Medicine Critical Care Medicine
DX: R91.8 Other nonspecific abnormal finding of lung field (principal)
CPT/HCPCS: 71260; Q9967

== ENCOUNTER 2021-06-21 01:58 | Emergency (ER) | payer OTHER ==
[2021-06-21 02:18] VITALS: BP 147/78; PULSE 88; RESP 20; TEMP 98.1
[2021-06-21] MEDS ORDERED: valACYclovir 500 MG TAB PO STA (02:28)
--- NOTE | 2021-06-21 02:36 | ED ---
Skin/Abscess/FB HPI - General Chief complaint: Skin/Abscess/Foreign Body Stated complaint: Facial Swelling Time Seen by Provider: 06/21/21 02:23 Source: patient, RN notes reviewed Mode of arrival: ambulatory - History of Present Illness Initial comments: Patient presents to the emergency department complaining of a sore on his lower lip which was present some 2 weeks ago. Patient states it seemed to get better but now is worse again. Complaining of mild pain. No other rashes or lesions. No difficulty swallowing. No fever or chills. No history of immunosuppression. - Related Data Home Medications Medication Instructions Recorded Confirmed Budesonide/Formoterol Fumarate 1 puff INHALATION RT-BID 10/01/15 10/01/15 [Symbicort 80-4.5 Mcg Inhaler] Previous Rx's Medication Instructions Recorded LORazepam [Ativan] 0.5 mg PO Q8H PRN #20 tab 10/13/15 Folic Acid 1 mg PO DAILY@1200 #30 tab 10/18/15 Multivitamins, Thera [Multivitamin 1 each PO DAILY@1200 #30 tab 10/18/15 (formulary)] Nicotine 21Mg/24Hr Patch [Habitrol] 1 patch TRANSDERM DAILY #30 patch 10/18/15 Qzklt-Vps-Sibu [id number] mg 1 each PO BID #20 packet 10/18/15 [Neutra-Phos Packet] Thiamine [Vitamin B-1] 100 mg PO DAILY@1200 #30 tab 10/18/15 Sulfamethox-Tmp 800-160Mg [Bactrim 2 each PO Q12HR #40 tab 10/09/20 DS 800-160 mg] hydrOXYzine HCL [Atarax] 25 mg PO TID PRN #20 tab 10/09/20 Permethrin 5% Cream [Elimite] 1 applic TOPICAL ONCE #1 tube 11/05/20 Mupirocin 2% Oint [Bactroban 2% 1 applic TOPICAL TID #22 gm 11/19/20 Oint] Hydrocortisone Cream 1 applic TOPICAL TID 10 Days #60 gm 11/25/20 [Hydrocortisone 2.5% Cream] Cephalexin [Keflex] 500 mg PO Q6H #40 cap 11/30/20 Acyclovir [Zovirax] 400 mg PO 5XD #50 capsule 06/21/21 Allergies Allergy/AdvReac Type Severity Reaction Status Date / Time Penicillins Allergy Rash/Hives Verified 06/21/21 02:13 chocolate Allergy Wheezing Uncoded 06/21/21 02:13 Review of Systems ROS Statement: Those systems with pertinent positive or pertinent negative responses have been documented in the HPI. ROS Other: All systems not noted in ROS Statement are negative. Past Medical History Past Medical History: No Reported History Additional Past Medical History / Comment(s): glaucoma History of Any Multi-Drug Resistant Organisms: None Reported Past Surgical History: Hernia Repair Additional Past Surgical History / Comment(s): right partial lung removal. pneumothrax Past Psychological History: Anxiety, Bipolar, Depression, PTSD Smoking Status: Former smoker Past Alcohol Use History: None Reported Past Drug Use History: Cocaine, Heroin, Marijuana - Past Family History Father History Unknown: Yes General Exam - General Exam Comments Initial Comments: Patient does not appear to be ill or toxic. Vital signs reviewed. General appearance: alert, in no apparent distress Head exam: Present: atraumatic, normocephalic, normal inspection Eye exam: Present: normal appearance, PERRL, EOMI. Absent: scleral icterus, conjunctival injection, periorbital swelling ENT exam: Present: normal oropharynx, mucous membranes moist, other (Patient has a vesicle on the right lower lip consistent with herpes simplex. No evidence of secondary infection. No oral lesions or ulcerations.). Absent: mucous membranes dry Neck exam: Present: normal inspection. Absent: tenderness, meningismus, lymphadenopathy Respiratory exam: Present: normal lung sounds bilaterally. Absent: respiratory distress, wheezes, rales, rhonchi, stridor Cardiovascular Exam: Present: regular rate, normal rhythm, normal heart sounds. Absent: systolic murmur, diastolic murmur, rubs, gallop, clicks GI/Abdominal exam: Present: soft, normal bowel sounds. Absent: distended, tenderness, guarding, rebound, rigid Extremities exam: Present: normal inspection, full ROM, normal capillary refill. Absent: tenderness, pedal edema, joint swelling, calf tenderness Back exam: Present: normal inspection Neurological exam: Present: alert, oriented X3, CN II-XII intact Psychiatric exam: Present: normal affect, normal mood Skin exam: Present: warm, dry, intact, normal color. Absent: rash Course Vital Signs 06/21/21 02:14 Temperature 98.1 F Pulse Rate 88 Respiratory 20 Rate Blood Pressure 147/78 O2 Sat by Pulse 97 Oximetry Medical Decision Making - Medical Decision Making Patient symptomology consistent with herpes simplex labialis. We'll treat with acyclovir for 5 days as the lesion is recurrent over the past 2 weeks. Went outpatient follow-up with his regular physician within a week for reevaluation. Patient concurs with this treatment plan. Disposition Clinical Impression: Herpes labialis without complication Disposition: HOME SELF-CARE Condition: Good Instructions (If sedation given, give patient instructions): Oral Herpes Simplex Virus Infections (ED) Prescriptions: Acyclovir [Zovirax] 400 mg PO 5XD #50 capsule Is patient prescribed a controlled substance at d/c from ED?: No Referrals: William Siu [Primary Care Provider] - 06/28/21 Time of Disposition: 02:34
== END 2021-06-21 02:50 | disposition home or self-care (01) ==
LOC: EC 01:58
DX: B00.1 Herpesviral vesicular dermatitis (principal); F31.9 Bipolar disorder, unspecified; F41.9 Anxiety disorder, unspecified; F12.90 Cannabis use, unspecified, uncomplicated; F11.90 Opioid use, unspecified, uncomplicated; F14.90 Cocaine use, unspecified, uncomplicated; Z79.899 Other long term (current) drug therapy; Z88.0 Allergy status to penicillin; Z87.891 Personal history of nicotine dependence
CPT/HCPCS: 99283

== ENCOUNTER 2021-06-25 10:54 | Emergency (ER) | payer OTHER ==
[2021-06-25 11:05] VITALS: BP 123/79; PULSE 81; RESP 18; TEMP 97
--- NOTE | 2021-06-25 11:30 | ED ---
General Adult HPI - General Chief complaint: Psychiatric Symptoms Stated complaint: mental health Time Seen by Provider: 06/25/21 10:56 Source: patient, police, EMS, RN notes reviewed Mode of arrival: ambulatory - History of Present Illness Initial comments: Patient is a pleasant 60-year-old male presenting to the emergency department with concern with homicidal thoughts. Patient admits to saying that he wanted to hurt somebody to his doctor. Patient states he meant this more that he was angry and not that he actually wanted to kill anybody. Patient denies any suicidal thoughts. No hallucinations. No new physical complaints. No alcohol use. Patient does have distant history of alcohol use. Patient occasionally smokes marijuana, no other drugs. No marijuana today. - Related Data Home Medications Medication Instructions Recorded Confirmed Fluticasone/Salmeterol [Advair 1 inhalation PO RT-BID 06/25/21 06/25/21 500-50 Diskus] hydrOXYzine HCL [Atarax] 25 mg PO TID PRN 06/25/21 06/25/21 Previous Rx's Medication Instructions Recorded Acyclovir [Zovirax] 400 mg PO 5XD #50 capsule 06/21/21 Allergies Allergy/AdvReac Type Severity Reaction Status Date / Time Penicillins Allergy Rash/Hives Verified 06/25/21 11:20 chocolate Allergy NADER & Uncoded 06/25/21 11:20 Wheezing Review of Systems ROS Statement: Those systems with pertinent positive or pertinent negative responses have been documented in the HPI. ROS Other: All systems not noted in ROS Statement are negative. Constitutional: Denies: fever Eyes: Denies: eye pain ENT: Denies: ear pain Respiratory: Denies: cough, dyspnea Cardiovascular: Denies: chest pain Endocrine: Denies: fatigue Gastrointestinal: Denies: abdominal pain Genitourinary: Denies: dysuria Musculoskeletal: Denies: back pain Skin: Denies: rash Neurological: Denies: weakness Psychiatric: Reports: as per HPI. Denies: auditory hallucinations, visual hallucinations, suicidal thoughts Past Medical History Past Medical History: No Reported History Additional Past Medical History / Comment(s): glaucoma History of Any Multi-Drug Resistant Organisms: None Reported Past Surgical History: Hernia Repair Additional Past Surgical History / Comment(s): right partial lung removal. pneumothrax, cataract surgery, Past Psychological History: Anxiety, Bipolar, Depression, PTSD Smoking Status: Former smoker Past Alcohol Use History: None Reported Past Drug Use History: Cocaine, Heroin, Marijuana - Past Family History Father History Unknown: Yes General Exam Limitations: no limitations General appearance: alert, in no apparent distress Head exam: Present: normocephalic Eye exam: Present: normal appearance Neck exam: Present: normal inspection Respiratory exam: Present: normal lung sounds bilaterally Cardiovascular Exam: Present: regular rate, normal rhythm GI/Abdominal exam: Present: soft. Absent: tenderness Extremities exam: Present: normal inspection Neurological exam: Present: alert Psychiatric exam: Present: normal affect, normal mood Skin exam: Present: normal color Course Vital Signs 06/25/21 10:55 Temperature 97.0 F L Pulse Rate 81 Respiratory 18 Rate Blood Pressure 123/79 O2 Sat by Pulse 97 Oximetry - Reevaluation(s) Reevaluation #1: 06/25/21 13:11 Patient eloped despite staff and security attempts to hold him. Police notified. Disposition Clinical Impression: Mental health problem Disposition: Left Against Medical Advice Is patient prescribed a controlled substance at d/c from ED?: No Referrals: William Siu [Primary Care Provider] - 1-2 days
== END 2021-06-25 12:10 | disposition left against medical advice (07) ==
LOC: EC 10:54
DX: F99 Mental disorder, not otherwise specified (principal); F12.90 Cannabis use, unspecified, uncomplicated; F14.90 Cocaine use, unspecified, uncomplicated; F11.90 Opioid use, unspecified, uncomplicated; F31.9 Bipolar disorder, unspecified; F41.9 Anxiety disorder, unspecified; Z87.891 Personal history of nicotine dependence
CPT/HCPCS: 82075; 99284